=== PATIENT | female | born 2000 | race Two or more races ===

== ENCOUNTER 2018-04-30 14:01 | Emergency (ER) | payer MEDICAID ==
[~2018-04-30] VITALS: Ht 157.5 cm; Wt 47.6 kg
[2018-04-30 14:17] VITALS: BP 123/77
--- NOTE | 2018-04-30 14:34 | Emergency Room Report ---
History of Present Illness General Chief Complaint: Upper Extremity Injury Source: Patient Present Illness HPI 17-year-old female patient presents the ER complaining of left arm numbness and tingling for the past few days. Reports history of similar symptoms in the past , states has been occurring since the beginning of the year. Also reports shortness of breath intermittently during this time, denies shortness of breath currently in the ER. Denies chest pain. Denies history of heart attack, asthma , stroke, heart disease. Denies history of smoking. Denies history of cancer. Denies history of injury or trauma to left upper extremity. Reports right hand dominant. States does not take any medication for relief of symptoms. Denies cough. Denies recent travel. Denies fever, chest pain, abdominal pain, vomiting. Allergies: Coded Allergies: No Known Allergies (Unverified , 04/30/18) Patient History Past Medical History: see triage record Last Menstrual Period: 04/20/18 Reviewed Nursing Documentation: PMH: Agreed; PSxH: Agreed Nursing Documentation-PMH Past Medical History: No History, Except For Hx Gastrointestinal Problems: No - appendectomy Review of Systems All Other Systems: negative except mentioned in HPI Physical Exam Vital Signs Date Time Temp Pulse Resp B/P (MAP) Pulse Ox O2 Delivery O2 Flow Rate FiO2 04/30/18 14:08 98.1 77 17 126/81 99 Room Air Sp02 EP Interpretation: reviewed, normal General Appearance: well appearing, no apparent distress, alert, GCS 15, non- toxic Head: normocephalic, atraumatic Eyes: bilateral eye normal inspection, bilateral eye PERRL ENT: hearing grossly normal, normal pharynx, no angioedema, normal voice, uvula midline, moist mucus membranes Neck: full range of motion, no bony tend Respiratory: lungs clear, normal breath sounds, no rhonchi, no respiratory distress, no accessory muscle use, no wheezing, speaking full sentences Cardiovascular #1: regular rate, rhythm, no edema Cardiovascular #2: 2+ radial (R), 2+ radial (L) Musculoskeletal: back normal, digits/nails normal, gait/station normal, normal range of motion, non-tender, other - NVI, negative Adson test, negative Jason's test, positive Morejon test Neurologic: alert, oriented x3, responsive, inside wireman III-XII nml as tested, motor strength/tone normal, sensory intact Psychiatric: mood/affect normal Skin: no rash Medical Decision Making PA Attestation Dr. Orr is my supervising Physician whom patient management has been discussed with. Diagnostic Impression: Primary Impression: Shoulder impingement Additional Impression: Shortness of breath ER Course Pt. presents to the ED c/o left upper extremity numbness and tingling and shortness of breath. Ddx considered but are not limited to fracture, sprain, strain, contusion, dislocation, shoulder impingement, thoracic outlet syndrome, radiculopathy, NV, anxiety, PNA. No erythema, no warmth to touch, no fever, nontoxic appearing, low suspicion for septic joint. Soft compartments, no pulselessness, no pallor, no paresthesias, low suspicion for compartment syndrome at this time. Vital signs: are WNL, pt. is afebrile Ordered X-ray and pain medication. ER COURSE Lungs clear to auscultation, no wheezes rhonchi or rales. Patient speaking in full sentences, smiling and laughing, pulse ox >95 on room air, does not require breathing treatment at this time. Positive Morejon test on physical exam indicative of possible impingement, ordered shoulder x-ray. Patient history and physical exam indicates no risk factors for cardiovascular disease, no history of NV, does not smoke, symptoms have been present for 1 year , will order EKG and chest x-ray to rule out NV, does not require full cardiac workup at this time. Outpatient with primary care provider for further cardiac workup. Chest x-ray negative for acute disease. EKG unremarkable, no ST elevations Negative chest x-ray and EKG did not indicate cardiac etiology of symptoms requiring further cardiac workup at this time, follow-up with primary care provider as outpatient for further cardiac workup as needed. Provided with pain medication. An X-ray of the left shoulder shows no acute fracture disease per the preliminary reading. Likely impingement causing pain symptoms. Follow-up with primary care provider to discuss need for MRI. Patient declined arm sling. Patient instructed on RICE method: rest, ice, compression, elevation. Patient instructed on rest, ice and heat. Patient instructed to be WBAT Contact information for orthopedic urgent care provided, follow-up with urgent care if unable to followup with primary care provider and get referral to obstetrics specialist. Followup with primary care provider. Discuss referral to ortho/pain management/ PT as needed. Discuss further imaging with MRI/CT as needed. ER precautions given. Patient resting comfortably in chair, texting on phone, nontoxic-appearing, breathing normally, okay for outpatient follow-up and treatment. DISCHARGE: -Rx provided for Tylenol for pain symptoms. -Rx provided for albuterol if symptoms of shortness of breath return At this time pt. is stable for d/c to home. Patient is resting comfortably, in no acute distress, nontoxic appearing, talking without difficulty. Will provide printed patient care instructions, and any necessary prescriptions. Patient instructed to follow with primary care provider in 3 - 5 days and to request further follow-up as needed. Care plan and follow up instructions have been discussed with the patient prior to discharge. Take medications as directed. Patient questions asked and answered. Patient reports understanding and agreement to treatment plan. ER precautions given, patient instructed to return to ER immediately for any new or worsening of symptoms. - Please note that this Emergency Department Report was dictated using [employer] support analyst technology software, occasionally this can lead to erroneous entry secondary to interpretation by the dictation equipment. EKG Diagnostic Results Rate: normal Rhythm: NSR ST Segments: no acute changes ASA given to the pt in ED: Yes JOHN Scribe Gloria Franco PA-C Rhythm Strip Diag. Results EP Interpretation: yes Rate: 73 Rhythm: NSR, no PVC's, no ectopy PA Scribe Gloria Franco PA-C Chest X-Ray Diagnostic Results Chest X-Ray Diagnostic Results : Chest X-Ray Ordered: Yes # of Views/Limited/Complete: 1 View Indication: Shortness of Breath EP Interpretation: Yes PA Xray: Interpretation reviewed, by supervising MD, and agrees with findings. Interpretation: no consolidation, no effusion, no pneumothorax, no acute cardiopulmonary disease Impression: No acute disease PA Scribe Gloria Franco PA-C Other X-Ray Diagnostic Results Other X-Ray Diagnostic Results : X-Ray ordered: Left shoulder # of Views/Limited Vs Complete: 3 View Indication: Pain EP Interpretation: Yes PA Xray: Interpretation reviewed, by supervising MD, and agrees with findings. Interpretation: no dislocation, no soft tissue swelling, no fractures Impression: No acute disease PA Scribe Text Keaton Franco PA-C Last Vital Signs Date Time Temp Pulse Resp B/P (MAP) Pulse Ox O2 Delivery O2 Flow Rate FiO2 04/30/18 14:17 98.6 74 16 123/77 99 Room Air Status: improved Disposition: HOME, SELF-CARE Condition: Stable Scripts Albuterol Sulfate* (ALBUTEROL SULFATE MDI*) 8.5 Gm Hfa.aer.ad 2 PUFF INH Q6H, #1 INH 0 Refills Prov: Maximiliano Franco 04/30/18 Acetaminophen* (TYLENOL EXTRA STRENGTH*) 500 Mg Tablet 500 MG ORAL Q8H PRN for Prn Headache/Temp > 101, #30 TAB 0 Refills Prov: Maximiliano Franco 04/30/18 Patient Instructions: Impingement Syndrome, Rotator Cuff, Bursitis With Rehab- Sports[facility], Shortness of Breath, [id number] Additional Instructions: Followup with PCP and discuss referral to cardiology for further evaluation and workup. Patient instructed to follow up with primary care provider and discuss further referral to orthopedics/physical therapy/pain management as needed. Discuss need for MRI. If unable to followup with PCP, followup with orthopedic urgent care in 5-7 days , call to schedule appointment. Patient instructed on RICE method: rest, ice, compression, elevation. Patient instructed to WBAT. Take medications as directed. Patient questions asked and answered. ER precautions given, patient instructed to return to ER immediately for any new or worsening of symptoms. [facility] [address] [facility] [address] [facility], [address] [email or web address] Maximiliano Franco Apr 30, 2018 14:34
[2018-04-30] MEDS ORDERED: TYLENOL EXTRA500 MG ORAL (15:04)
[2018-04-30] MEDS ORDERED: ALBUTEROL SULF8.5 GM INH (15:04)
--- NOTE | 2018-04-30 15:10 | Diagnostic Imaging Report ---
Indication: Chest pain Comparison: None A single view chest radiograph was obtained. Findings: Cardiomediastinal appearance is within normal limits for age. The lungs are clear. Pulmonary vascularity is appropriate. The diaphragmatic contour is smooth and costophrenic angles are sharp. No pleural effusions are identified. The bones are unremarkable. Impression: No acute findings
--- NOTE | 2018-04-30 15:10 | Diagnostic Imaging Report ---
Indication: left shoulder pain Findings: 3 views of the left shoulder were obtained. Alignment of the left shoulder is normal. No acute fracture is identified. Soft tissues are unremarkable. Impression: No acute injury
[2018-04-30 15:11] VITALS: BP 120/80
--- NOTE | 2018-05-01 15:29 | Cardiology Report ---
APPROVED REPORT EKG Measurement Heart [id number] Normal sinus rhythm Normal ECG
== END 2018-04-30 18:52 | disposition home or self-care (01) ==
LOC: EMR 14:15
DX: M25.812 Other specified joint disorders, left shoulder (principal); Z90.89 Acquired absence of other organs; R06.02 Shortness of breath
CPT/HCPCS: 71045; 93005; 99284